=== PATIENT | male | born 1960 | race American Indian/Alaskan Native ===

== ENCOUNTER 2017-11-18 19:40 | Emergency (ER) | payer MEDICARE, OTHER ==
[~2017-11-18 19:40] MED LIST: Sodium Chloride 0.9% 1,000 ML IV ONE
--- NOTE | 2017-11-18 20:13 | EDM.PDOC ---
ED HPI GENERAL MEDICAL PROBLEM - General Chief Complaint: Diabetic Complaint Stated Complaint: IN BY AMBULANCE Time Seen by Provider: 11/18/17 19:45 Source of Information: Reports: Patient, EMS, RN Notes Reviewed History Limitations: Reports: No Limitations - History of Present Illness INITIAL COMMENTS - FREE TEXT/NARRATIVE: ED via [facility] with c/o feeling light headed, has noticed not feeling well for past week. Admits running out of medications 2 weeks ago. Hx htn, Diabetic on Metformin. and Seroquel for sleep . Denies ETOH. use only rare. Smoker one pack per day. Notes hx past month blood in urine for few days then passed stone. Stools have been dark. No vomiting. Has been living in [place] for past few years, now [place] spent in [facility] [place]. Notes feeling light headed when getting up at night to void, - Related Data Allergies Allergy/AdvReac Type Severity Reaction Status Date / Time No Known Allergies Allergy Verified 11/18/17 19:49 Home Meds: Home Meds Lisinopril [Prinivil] 1 tab PO DAILY 11/18/17 [History] QUEtiapine Fumarate [Seroquel] 600 mg PO BEDTIME 11/18/17 [History] metFORMIN HCl [Metformin HCl] 1 tab PO BID 11/18/17 [History] ED ROS GENERAL - Review of Systems Review Of Systems: See Below Constitutional: Reports: Malaise HEENT: Reports: No Symptoms Respiratory: Reports: No Symptoms Cardiovascular: Reports: Blood Pressure Problem, Lightheadedness Endocrine: Reports: High Glucose GI/Abdominal: Reports: Black Stool, Decreased Appetite : Reports: Hematuria (resolved) Musculoskeletal: Reports: No Symptoms Skin: Reports: No Symptoms ED EXAM GENERAL NO PERIP PULSE - Physical Exam Exam: See Below Exam Limited By: No Limitations General Appearance: Alert, No Apparent Distress Eye Exam: Bilateral Eye: EOMI Ears: Normal External Exam Nose: Normal Inspection, Normal Mucosa Throat/Mouth: Normal Inspection. No: Normal Teeth (multiple absent) Head: Atraumatic, Normocephalic Neck: Normal Inspection Respiratory/Chest: No Respiratory Distress, Lungs Clear, Normal Breath Sounds Cardiovascular: Normal Peripheral Pulses, Regular Rate, Rhythm, Tachycardia GI/Abdominal: Normal Bowel Sounds, Soft, Non-Tender Rectal (Males) Exam: Normal Rectal Tone, Heme + Stool Back Exam: Normal Inspection Extremities: Normal Inspection, Pallor Neurological: Alert, Oriented, Normal Cognition Psychiatric: Normal Affect Skin Exam: Warm, Dry, Intact, Pallor Course - Vital Signs Last Recorded V/S: Last Vital Signs Temp 98.3 F 11/18/17 21:57 Pulse 90 11/18/17 21:57 Resp 13 11/18/17 21:57 BP 123/58 L 11/18/17 21:57 Pulse Ox 100 11/18/17 19:41 - Orders/Labs/Meds Orders: Active Orders 24 hr Category Date Time Status EKG 12 Lead [EKG Documentation Completion] [] URGENT Care 11/18/17 20:18 Active Glucose [Blood Glucose Check, Bedside] [] ONETIME Care 11/18/17 19:35 Active ABG [BLOOD GAS ARTERIAL] [BG] Stat Lab 11/18/17 19:38 Received RED BLOOD CELLS LP [BBK] Stat Lab 11/18/17 19:40 Results TYPE AND SCREEN [BBK] Stat Lab 11/18/17 19:40 Results UA W/MICROSCOPIC [URIN] Stat Lab 11/18/17 21:19 Ordered Labs: Laboratory Tests 11/18/17 11/18/17 11/18/17 Range/Units 19:36 19:40 19:40 WBC 14.5 H (5.0-10.0) 10^3/uL RBC 1.47 L (4.6-6.2) 10^6/uL Hgb 4.5 L* (14.0-18.0) g/dL Hct 14.1 L* (40.0-54.0) % MCV 95.9 (80-100) fL MCH 30.6 (27.0-34.0) pg MCHC 31.9 L (33.0-35.0) g/dL Plt Count 528 H (150-450) 10^3/uL Neut % (Auto) 75.7 H (42.2-75.2) % Lymph % (Auto) 14.6 L (20.5-50.1) % [place] % (Auto) 8.0 (2-8) % Eos % (Auto) 0.9 L (1.0-3.0) % Baso % (Auto) 0.8 (0.0-1.0) % Add Manual Diff Yes Neutrophils % (Manual) 76 H (42-75) % Band Neutrophils % 9 % Lymphocytes % (Manual) 12 L (20-50) % Atypical Lymphs % 0 % Monocytes % (Manual) 2 (2-8) % Eosinophils % (Manual) 1 (1-3) % Basophils % (Manual) 0 Platelet Estimate Increased Hypochromasia 2+ moderate Poikilocytosis 1+ slight Anisocytosis 1+ slight Sodium 131 L (135-145) mmol/L Potassium 3.2 L (3.6-5.0) mmol/L Chloride 102 (101-111) mmol/L Carbon Dioxide 14.0 L (21.0-31.0) mmol/L Anion Gap 18.2 BUN 17 (7-18) mg/dL Creatinine 1.1 (0.6-1.3) mg/dL Est Cr Clr Drug Dosing 74.66 mL/min Estimated GFR (MDRD) > 60 BUN/Creatinine Ratio 15.45 Glucose 564 H* (74-105) mg/dL POC Glucose 456 H* (70-105) mg/dl Lactic Acid (0.5-2.2) mmol/L Calcium 8.6 (8.4-10.2) mg/dl Total Bilirubin 0.6 (0.2-1.0) mg/dL AST 27 (10-42) IU/L ALT 9 L (10-60) IU/L Alkaline Phosphatase 53 (42-121) IU/L Total Protein 6.3 L (6.7-8.2) g/dl Albumin 3.4 (3.2-5.5) g/dl Globulin 2.9 Albumin/Globulin Ratio 1.17 Amylase 49 (28-100) U/L Lipase 64 H (22-51) U/L Urine Color (YELLOW) Urine Appearance (CLEAR) Urine pH (5.0-9.0) Ur Specific [place] (1.005-1.030) Urine Protein (NEGATIVE) Urine Glucose (UA) (NEGATIVE) Urine Ketones (NEGATIVE) Urine Occult Blood (NEGATIVE) Urine Nitrite (NEGATIVE) Urine Bilirubin (NEGATIVE) Urine Urobilinogen (0.2-1.0) mg/dL Ur Leukocyte Esterase (NEGATIVE) Urine RBC /HPF Urine WBC (0-5/HPF) /HPF Ur Epithelial Cells /HPF Urine Bacteria (0-FEW/HPF) /HPF Blood Type Gel Antibody Screen Crossmatch 11/18/17 11/18/17 11/18/17 Range/Units 19:40 19:40 21:19 WBC (5.0-10.0) 10^3/uL RBC (4.6-6.2) 10^6/uL Hgb (14.0-18.0) g/dL Hct (40.0-54.0) % MCV (80-100) fL MCH (27.0-34.0) pg MCHC (33.0-35.0) g/dL Plt Count (150-450) 10^3/uL Neut % (Auto) (42.2-75.2) % Lymph % (Auto) (20.5-50.1) % [place] % (Auto) (2-8) % Eos % (Auto) (1.0-3.0) % Baso % (Auto) (0.0-1.0) % Add Manual Diff Neutrophils % (Manual) (42-75) % Band Neutrophils % % Lymphocytes % (Manual) (20-50) % Atypical Lymphs % % Monocytes % (Manual) (2-8) % Eosinophils % (Manual) (1-3) % Basophils % (Manual) Platelet Estimate Hypochromasia Poikilocytosis Anisocytosis Sodium (135-145) mmol/L Potassium (3.6-5.0) mmol/L Chloride (101-111) mmol/L Carbon Dioxide (21.0-31.0) mmol/L Anion Gap BUN (7-18) mg/dL Creatinine (0.6-1.3) mg/dL Est Cr Clr Drug Dosing mL/min Estimated GFR (MDRD) BUN/Creatinine Ratio Glucose (74-105) mg/dL POC Glucose (70-105) mg/dl Lactic Acid 4.7 H (0.5-2.2) mmol/L Calcium (8.4-10.2) mg/dl Total Bilirubin (0.2-1.0) mg/dL AST (10-42) IU/L ALT (10-60) IU/L Alkaline Phosphatase (42-121) IU/L Total Protein (6.7-8.2) g/dl Albumin (3.2-5.5) g/dl Globulin Albumin/Globulin Ratio Amylase (28-100) U/L Lipase (22-51) U/L Urine Color Yellow (YELLOW) Urine Appearance Slightly cloudy (CLEAR) Urine pH 7.0 (5.0-9.0) Ur Specific [place] 1.010 (1.005-1.030) Urine Protein Negative (NEGATIVE) Urine Glucose (UA) >=1000 H (NEGATIVE) Urine Ketones Trace H (NEGATIVE) Urine Occult Blood Negative (NEGATIVE) Urine Nitrite Negative (NEGATIVE) Urine Bilirubin Negative (NEGATIVE) Urine Urobilinogen 0.2 (0.2-1.0) mg/dL Ur Leukocyte Esterase Negative (NEGATIVE) Urine RBC Not seen /HPF Urine WBC 0-5 (0-5/HPF) /HPF Ur Epithelial Cells Few /HPF Urine Bacteria Few (0-FEW/HPF) /HPF Blood Type O POSITIVE Gel Antibody Screen Negative Crossmatch See Detail 11/18/17 Range/Units 21:25 WBC (5.0-10.0) 10^3/uL RBC (4.6-6.2) 10^6/uL Hgb (14.0-18.0) g/dL Hct (40.0-54.0) % MCV (80-100) fL MCH (27.0-34.0) pg MCHC (33.0-35.0) g/dL Plt Count (150-450) 10^3/uL Neut % (Auto) (42.2-75.2) % Lymph % (Auto) (20.5-50.1) % [place] % (Auto) (2-8) % Eos % (Auto) (1.0-3.0) % Baso % (Auto) (0.0-1.0) % Add Manual Diff Neutrophils % (Manual) (42-75) % Band Neutrophils % % Lymphocytes % (Manual) (20-50) % Atypical Lymphs % % Monocytes % (Manual) (2-8) % Eosinophils % (Manual) (1-3) % Basophils % (Manual) Platelet Estimate Hypochromasia Poikilocytosis Anisocytosis Sodium (135-145) mmol/L Potassium (3.6-5.0) mmol/L Chloride (101-111) mmol/L Carbon Dioxide (21.0-31.0) mmol/L Anion Gap BUN (7-18) mg/dL Creatinine (0.6-1.3) mg/dL Est Cr Clr Drug Dosing mL/min Estimated GFR (MDRD) BUN/Creatinine Ratio Glucose (74-105) mg/dL POC Glucose 403 H* (70-105) mg/dl Lactic Acid (0.5-2.2) mmol/L Calcium (8.4-10.2) mg/dl Total Bilirubin (0.2-1.0) mg/dL AST (10-42) IU/L ALT (10-60) IU/L Alkaline Phosphatase (42-121) IU/L Total Protein (6.7-8.2) g/dl Albumin (3.2-5.5) g/dl Globulin Albumin/Globulin Ratio Amylase (28-100) U/L Lipase (22-51) U/L Urine Color (YELLOW) Urine Appearance (CLEAR) Urine pH (5.0-9.0) Ur Specific [place] (1.005-1.030) Urine Protein (NEGATIVE) Urine Glucose (UA) (NEGATIVE) Urine Ketones (NEGATIVE) Urine Occult Blood (NEGATIVE) Urine Nitrite (NEGATIVE) Urine Bilirubin (NEGATIVE) Urine Urobilinogen (0.2-1.0) mg/dL Ur Leukocyte Esterase (NEGATIVE) Urine RBC /HPF Urine WBC (0-5/HPF) /HPF Ur Epithelial Cells /HPF Urine Bacteria (0-FEW/HPF) /HPF Blood Type Gel Antibody Screen Crossmatch Meds: Medications Discontinued Medications Generic Name Dose Route Start Last Admin Trade Name Freq PRN Reason Stop Dose Admin Sodium Chloride 1,000 mls @ 999 mls/hr 11/18/17 19:35 11/18/17 19:59 Normal Saline IV 11/18/17 20:35 999 mls/hr .BOLUS ONE Administration Insulin Human Regular 5 unit 11/18/17 20:17 11/18/17 20:25 Humulin R IV 11/18/17 20:18 5 units ONETIME ONE Administration Protocol Pantoprazole Sodium 80 mg 11/18/17 20:59 11/18/17 21:06 Protonix Iv IVPUSH 11/18/17 21:00 80 mg .BOLUS ONE Administration - Re-Assessments/Exams Free Text/Narrative Re-Assessment/Exam: 11/18/17 21:18 Vitals remain stable, c/o mild mid epigastric discomfort, no nausea or vomiting. TC Dr. Curtis, Ariel, accepting of patient for further evaluation and management of anemia with hemoccult positve stools. Tx via [facility], PRBC infusing Departure - Departure Time of Disposition: 22:00 Disposition: DC/Tfer to Acute Hospital 02 Condition: Undetermined Clinical Impression: Light-headed feeling, Hyperglycemia GI bleed Qualifiers: GI bleed type/associated pathology: melena Qualified Code(s): K92.1 - Melena - Discharge Information Referrals: PCP,None [Primary Care Provider] - Forms: ED Department Discharge - My Orders Last 24 Hours: My Active Orders 11/18/17 19:35 Glucose [Blood Glucose Check, Bedside] [RC] ONETIME 11/18/17 19:38 ABG [BLOOD GAS ARTERIAL] [BG] Stat 11/18/17 19:40 RED BLOOD CELLS LP [BBK] Stat TYPE AND SCREEN [BBK] Stat 11/18/17 20:18 EKG 12 Lead [EKG Documentation Completion] [RC] URGENT 11/18/17 21:19 UA W/MICROSCOPIC [URIN] Stat - Assessment/Plan Last 24 Hours: My Active Orders 11/18/17 19:35 Glucose [Blood Glucose Check, Bedside] [RC] ONETIME 11/18/17 19:38 ABG [BLOOD GAS ARTERIAL] [BG] Stat 11/18/17 19:40 RED BLOOD CELLS LP [BBK] Stat TYPE AND SCREEN [BBK] Stat 11/18/17 20:18 EKG 12 Lead [EKG Documentation Completion] [RC] URGENT 11/18/17 21:19 UA W/MICROSCOPIC [URIN] Stat
[2017-11-18] MEDS ORDERED: Insulin Regular, Human 100 Units/ML 3 ML Vial IV ONE (20:17)
[2017-11-18 20:25] LABS: ANION GAP 18.2; CHLORIDE,CL 102 mmol/L (101-111); SODIUM,NA 131 mmol/L (135-145)
[2017-11-18] MEDS ORDERED: Pantoprazole 40 MG Vial IVPUSH ONE (20:59)
--- NOTE | 2017-11-19 11:46 | EKG ---
11/18/2017 - AILIN BLAKE - FINDINGS: EKG shows normal sinus rhythm. Probable left atrial abnormality. Nonspecific T-wave abnormality. [facility] /[id number]
== END 2017-11-18 22:03 ==
LOC: DL.ED 19:40
DX: E11.65 Type 2 diabetes mellitus with hyperglycemia (principal); K92.1 Melena; I10 Essential (primary) hypertension; Z79.84 Long term (current) use of oral hypoglycemic drugs; Z79.899 Other long term (current) drug therapy
CPT/HCPCS: 36415; 36430; 80053; 81001; 82150; 82272; 82962; 83605; 83690; 85025; 86850; 86900; 86901; 86920; 86922; 93005; 93010; 96365; 96375; 99285; C9113; J1815; J7030; P9016; 82803

== ENCOUNTER 2018-01-25 10:09 | Emergency (ER) | payer BC ==
[2018-01-25] MEDS ORDERED: Midazolam 1 MG/ML 2 ML SDV IVPUSH ONE ×2 (10:12→10:39)
[2018-01-25] MEDS ORDERED: Sodium Chloride 0.9% 10 ML Syringe FLUSH PRN (10:15)
--- NOTE | 2018-01-25 10:17 | EDM.PDOC ---
ED HPI GENERAL MEDICAL PROBLEM - General Chief Complaint: Neurological Problem Stated Complaint: BY AMBULANCE Time Seen by Provider: 01/25/18 10:16 Source of Information: Reports: EMS, RN, RN Notes Reviewed History Limitations: Reports: Altered Mental Status - History of Present Illness INITIAL COMMENTS - FREE TEXT/NARRATIVE: Patient arrives to ER by [facility] as a "Nikita Richardson" with EMS report that pt was seen laying outside near [facility] since about 0730HRS this morning. Pt has no identification on him, and none was found on scene. It is believed that he has been staying in a camper near the area where he was found, but no one on scene knew him. EMS reports pt has been awake, alert, and warm, moving B/L arms and legs, turn head/moving neck and looking around, somewhat hyperactive and slightly agitated, follows some commands. Pt does not verbalize answers to question, and has not spoke other than to say, "no" a few times. Pt is unable to provide any history. Onset: Unknown/Unsure Location: Reports: Generalized Severity: Severe - Related Data Allergies Allergy/AdvReac Type Severity Reaction Status Date / Time No Known Allergies Allergy Verified 01/25/18 11:57 Past Medical History - History Comment History Comment: unable to obtain history: altered mental status, non-verbal Social & Family History - Family History Family Medical History: Unobtainable - Living Situation & Occupation Occupation: Other (unable to obtain any history: altered mental status, non- verbal) ED ROS GENERAL - Review of Systems Review Of Systems: Unable To Obtain (altered mental status, non-verbal) ED EXAM, NEURO - Physical Exam Exam: See Below Exam Limited By: Altered Mental Status General Appearance: Alert, No Apparent Distress, Thin, Other (Poor hygiene) Eye Exam: Bilateral Eye: EOMI, Normal Inspection, PERRL Ears: Normal External Exam Nose: Normal Inspection, Normal Mucosa, No Blood Throat/Mouth: Normal Lips, No Airway Compromise, Other (very dry oral membranes) Head Exam: Atraumatic, Normocephalic Neck: Normal Inspection, Supple, Non-Tender, Full Range of Motion Respiratory/Chest: No Respiratory Distress, Lungs Clear, Normal Breath Sounds, No Accessory Muscle Use, Chest Non-Tender Cardiovascular: Regular Rate, Rhythm, No Edema, Tachycardia GI/Abdominal: Normal Bowel Sounds, Soft, Non-Tender, No Distention, Pelvis Stable (Male) Exam: Deferred Rectal (Males) Exam: Deferred Neurological: Alert, Other (Aphasia. Pt spontaneously and purposefully moves B/ L upper & lower extremities, follows some commands) Back Exam: Normal Inspection Extremities: Normal Inspection, Normal Range of Motion, Non-Tender, No Pedal Edema, Normal Capillary Refill Skin Exam: Warm, Dry, Intact, Normal Color, No Rash EKG INTERPRETATION EKG Date: 01/25/18 Time: 10:21 Rhythm: Other (Sinus tach) Rate (Beats/Min): 114 [place]: Normal P-Wave: Present (Rt atrial abnormality) QRS: Normal ST-T: Normal QT: Normal Comparison: NA - No Prior EKG Course - Vital Signs Last Recorded V/S: Last Vital Signs Temp 37.0 C 01/25/18 10:16 Pulse 106 H 01/25/18 11:29 Resp 20 01/25/18 11:49 BP 143/67 H 01/25/18 11:49 Pulse Ox 100 01/25/18 11:49 - Orders/Labs/Meds Orders: Active Orders 24 hr Category Date Time Status Blood Glucose Check, Bedside [RC] ONETIME Care 01/25/18 10:15 Active EKG 12 Lead [EKG Documentation Completion] [RC] STAT Care 01/25/18 10:14 Active Peripheral IV Care [RC] . DIRECTED Care 01/25/18 10:15 Active DRUG SCREEN URINE BIORAD [URCHEM] Stat Lab 01/25/18 11:20 Ordered MVI, Adult with Vitamin K [Infuvite Adult] 10 ml Med 01/25/18 11:36 Active Thiamine [Vitamin B-1] 100 mg Folic Acid 1 mg Lactated Ringers [Ringers, Lactated] 1,000 ml IV .BOLUS Sodium Chloride 0.9% [Saline Flush] Med 01/25/18 10:15 Active 10 ml FLUSH ASDIRECTED PRN Peripheral IV Insertion Adult [OM.PC] Stat Oth 01/25/18 10:14 Ordered Medication Orders Multivitamins/Minerals 10 ml/Thiamine HCl 100 mg/ Folic Acid 1 mg/ Lactated Ringer's 1,011.2 mls @ 999 mls/hr IV .BOLUS ONE Stop: 01/25/18 12:36 Last Admin: 01/25/18 12:00 Dose: 999 mls/hr Sodium Chloride (Saline Flush) 10 ml FLUSH ASDIRECTED PRN PRN Reason: Keep Vein Open Labs: Laboratory Tests 01/25/18 01/25/18 01/25/18 Range/Units 10:29 10:29 10:29 WBC 17.0 H (5.0-10.0) 10^3/uL RBC 4.85 (4.6-6.2) 10^6/uL Hgb 13.6 L (14.0-18.0) g/dL Hct 39.8 L (40.0-54.0) % MCV 82.1 (80-100) fL MCH 28.0 (27.0-34.0) pg MCHC 34.2 (33.0-35.0) g/dL Plt Count 432 (150-450) 10^3/uL Neut % (Auto) 78.5 H (42.2-75.2) % Lymph % (Auto) 10.0 L (20.5-50.1) % Hale % (Auto) 11.1 H (2-8) % Eos % (Auto) 0.2 L (1.0-3.0) % Baso % (Auto) 0.2 (0.0-1.0) % Add Manual Diff Yes Neutrophils % (Manual) 77 H (42-75) % Band Neutrophils % 4 % Lymphocytes % (Manual) 10 L (20-50) % Monocytes % (Manual) 9 H (2-8) % Nucleated RBCs 1 /100WBC PT 10.0 (9.0-12.0) SEC INR 1.0 (0.9-1.2) APTT 26.9 (22.0-34.0) SEC Sodium 145 (135-145) mmol/L Potassium 3.9 (3.6-5.0) mmol/L Chloride 110 (101-111) mmol/L Carbon Dioxide 17.0 L (21.0-31.0) mmol/L Anion Gap 21.9 BUN 37 H (7-18) mg/dL Creatinine 1.0 (0.6-1.3) mg/dL Est Cr Clr Drug Dosing TNP Estimated GFR (MDRD) > 60 BUN/Creatinine Ratio 37.00 Glucose 326 H (74-105) mg/dL Lactic Acid (0.5-2.2) mmol/L Calcium 10.1 (8.4-10.2) mg/dl Total Bilirubin 0.8 (0.2-1.0) mg/dL AST 42 (10-42) IU/L ALT 13 (10-60) IU/L Alkaline Phosphatase 76 (42-121) IU/L Ammonia (11-35) umol/L Creatine Kinase (26-174) IU/L Creatine Kinase Index (0-2.4) % CK-MB (CK-2) (0.4-4.7) ng/mL Troponin I 0.03 H* (0.00-0.02) ng/ml Total Protein 8.4 H (6.7-8.2) g/dl Albumin 4.7 (3.2-5.5) g/dl Globulin 3.7 Albumin/Globulin Ratio 1.27 Urine Color (YELLOW) Urine Appearance (CLEAR) Urine pH (5.0-9.0) Ur Specific [place] (1.005-1.030) Urine Protein (NEGATIVE) Urine Glucose (UA) (NEGATIVE) Urine Ketones (NEGATIVE) Urine Occult Blood (NEGATIVE) Urine Nitrite (NEGATIVE) Urine Bilirubin (NEGATIVE) Urine Urobilinogen (0.2-1.0) mg/dL Ur Leukocyte Esterase (NEGATIVE) Urine RBC /HPF Urine WBC (0-5/HPF) /HPF Ur Epithelial Cells /HPF Urine Bacteria (0-FEW/HPF) /HPF Urine Opiates Screen (NEGATIVE) Ur Oxycodone Screen (NEGATIVE) Urine Methadone Screen (NEGATIVE) Ur Barbiturates Screen (NEGATIVE) U Tricyclic Antidepress (NEGATIVE) Ur Phencyclidine Scrn (NEGATIVE) Ur Amphetamine Screen (NEGATIVE) U Methamphetamines Scrn (NEGATIVE) Urine MDMA Screen (NEGATIVE) U Benzodiazepines Scrn (NEGATIVE) Urine Cocaine Screen (NEGATIVE) U Marijuana (THC) Screen (NEGATIVE) Ethyl Alcohol < 5 mg/dL 01/25/18 01/25/18 01/25/18 Range/Units 10:29 10:29 10:29 WBC (5.0-10.0) 10^3/uL RBC (4.6-6.2) 10^6/uL Hgb (14.0-18.0) g/dL Hct (40.0-54.0) % MCV (80-100) fL MCH (27.0-34.0) pg MCHC (33.0-35.0) g/dL Plt Count (150-450) 10^3/uL Neut % (Auto) (42.2-75.2) % Lymph % (Auto) (20.5-50.1) % Hale % (Auto) (2-8) % Eos % (Auto) (1.0-3.0) % Baso % (Auto) (0.0-1.0) % Add Manual Diff Neutrophils % (Manual) (42-75) % Band Neutrophils % % Lymphocytes % (Manual) (20-50) % Monocytes % (Manual) (2-8) % Nucleated RBCs /100WBC PT (9.0-12.0) SEC INR (0.9-1.2) APTT (22.0-34.0) SEC Sodium (135-145) mmol/L Potassium (3.6-5.0) mmol/L Chloride (101-111) mmol/L Carbon Dioxide (21.0-31.0) mmol/L Anion Gap BUN (7-18) mg/dL Creatinine (0.6-1.3) mg/dL Est Cr Clr Drug Dosing Estimated GFR (MDRD) BUN/Creatinine Ratio Glucose (74-105) mg/dL Lactic Acid 2.4 H (0.5-2.2) mmol/L Calcium (8.4-10.2) mg/dl Total Bilirubin (0.2-1.0) mg/dL AST (10-42) IU/L ALT (10-60) IU/L Alkaline Phosphatase (42-121) IU/L Ammonia 15 (11-35) umol/L Creatine Kinase 1402 H (26-174) IU/L Creatine Kinase Index 0.6 (0-2.4) % CK-MB (CK-2) 8.00 H (0.4-4.7) ng/mL Troponin I (0.00-0.02) ng/ml Total Protein (6.7-8.2) g/dl Albumin (3.2-5.5) g/dl Globulin Albumin/Globulin Ratio Urine Color (YELLOW) Urine Appearance (CLEAR) Urine pH (5.0-9.0) Ur Specific [place] (1.005-1.030) Urine Protein (NEGATIVE) Urine Glucose (UA) (NEGATIVE) Urine Ketones (NEGATIVE) Urine Occult Blood (NEGATIVE) Urine Nitrite (NEGATIVE) Urine Bilirubin (NEGATIVE) Urine Urobilinogen (0.2-1.0) mg/dL Ur Leukocyte Esterase (NEGATIVE) Urine RBC /HPF Urine WBC (0-5/HPF) /HPF Ur Epithelial Cells /HPF Urine Bacteria (0-FEW/HPF) /HPF Urine Opiates Screen (NEGATIVE) Ur Oxycodone Screen (NEGATIVE) Urine Methadone Screen (NEGATIVE) Ur Barbiturates Screen (NEGATIVE) U Tricyclic Antidepress (NEGATIVE) Ur Phencyclidine Scrn (NEGATIVE) Ur Amphetamine Screen (NEGATIVE) U Methamphetamines Scrn (NEGATIVE) Urine MDMA Screen (NEGATIVE) U Benzodiazepines Scrn (NEGATIVE) Urine Cocaine Screen (NEGATIVE) U Marijuana (THC) Screen (NEGATIVE) Ethyl Alcohol mg/dL 01/25/18 01/25/18 Range/Units 11:20 11:20 WBC (5.0-10.0) 10^3/uL RBC (4.6-6.2) 10^6/uL Hgb (14.0-18.0) g/dL Hct (40.0-54.0) % MCV (80-100) fL MCH (27.0-34.0) pg MCHC (33.0-35.0) g/dL Plt Count (150-450) 10^3/uL Neut % (Auto) (42.2-75.2) % Lymph % (Auto) (20.5-50.1) % Hale % (Auto) (2-8) % Eos % (Auto) (1.0-3.0) % Baso % (Auto) (0.0-1.0) % Add Manual Diff Neutrophils % (Manual) (42-75) % Band Neutrophils % % Lymphocytes % (Manual) (20-50) % Monocytes % (Manual) (2-8) % Nucleated RBCs /100WBC PT (9.0-12.0) SEC INR (0.9-1.2) APTT (22.0-34.0) SEC Sodium (135-145) mmol/L Potassium (3.6-5.0) mmol/L Chloride (101-111) mmol/L Carbon Dioxide (21.0-31.0) mmol/L Anion Gap BUN (7-18) mg/dL Creatinine (0.6-1.3) mg/dL Est Cr Clr Drug Dosing Estimated GFR (MDRD) BUN/Creatinine Ratio Glucose (74-105) mg/dL Lactic Acid (0.5-2.2) mmol/L Calcium (8.4-10.2) mg/dl Total Bilirubin (0.2-1.0) mg/dL AST (10-42) IU/L ALT (10-60) IU/L Alkaline Phosphatase (42-121) IU/L Ammonia (11-35) umol/L Creatine Kinase (26-174) IU/L Creatine Kinase Index (0-2.4) % CK-MB (CK-2) (0.4-4.7) ng/mL Troponin I (0.00-0.02) ng/ml Total Protein (6.7-8.2) g/dl Albumin (3.2-5.5) g/dl Globulin Albumin/Globulin Ratio Urine Color Yellow (YELLOW) Urine Appearance Clear (CLEAR) Urine pH 7.0 (5.0-9.0) Ur Specific [place] 1.025 (1.005-1.030) Urine Protein 100 H (NEGATIVE) Urine Glucose (UA) 250 H (NEGATIVE) Urine Ketones 80 H (NEGATIVE) Urine Occult Blood Small H (NEGATIVE) Urine Nitrite Negative (NEGATIVE) Urine Bilirubin Moderate H (NEGATIVE) Urine Urobilinogen 0.2 (0.2-1.0) mg/dL Ur Leukocyte Esterase Negative (NEGATIVE) Urine RBC 0-5 /HPF Urine WBC 0-5 (0-5/HPF) /HPF Ur Epithelial Cells Rare /HPF Urine Bacteria Not seen (0-FEW/HPF) /HPF Urine Opiates Screen Negative (NEGATIVE) Ur Oxycodone Screen Negative (NEGATIVE) Urine Methadone Screen Negative (NEGATIVE) Ur Barbiturates Screen Negative (NEGATIVE) U Tricyclic Antidepress Negative (NEGATIVE) Ur Phencyclidine Scrn Negative (NEGATIVE) Ur Amphetamine Screen Negative (NEGATIVE) U Methamphetamines Scrn Negative (NEGATIVE) Urine MDMA Screen Negative (NEGATIVE) U Benzodiazepines Scrn Negative (NEGATIVE) Urine Cocaine Screen Negative (NEGATIVE) U Marijuana (THC) Screen Negative (NEGATIVE) Ethyl Alcohol mg/dL Meds: Medications Generic Name Dose Route Start Last Admin Trade Name Freq PRN Reason Stop Dose Admin Multivitamins/Minerals 10 ml/ 1,011.2 mls @ 999 mls/hr 01/25/18 11:36 12:00 Thiamine HCl 100 mg/ Folic IV 01/25/18 12:36 999 mls/hr Acid 1 mg/ Lactated Ringer's .BOLUS ONE Administration Sodium Chloride 10 ml 01/25/18 10:15 Saline Flush FLUSH ASDIRECTED PRN Keep Vein Open Discontinued Medications Generic Name Dose Route Start Last Admin Trade Name Sarah Beth PRN Reason Stop Dose Admin Lorazepam 2 mg 01/25/18 11:49 01/25/18 11:55 Ativan IVPUSH 01/25/18 11:50 2 mg ONETIME ONE Administration Midazolam HCl 2 mg 01/25/18 10:12 01/25/18 10:24 Versed 1 Mg/Ml IVPUSH 01/25/18 10:13 2 mg ONETIME ONE Administration Midazolam HCl 2 mg 01/25/18 10:39 01/25/18 10:50 Versed 1 Mg/Ml IVPUSH 01/25/18 10:40 2 mg ONETIME ONE Administration - Radiology Interpretation Free Text/Narrative:: [facility] Final Radiology Report Call: [phone] assistance Online chat: [email or web address] Name: AILIN BLAKE Age: 57Years M Date: 01/25/2018 SSN: -- : [id number] Study: CT HEAD WO Requesting Physician: MC COULTER Images: 146 Addl Studies: Provided Clinical History: ALTERED MENTAL STATUS WITH APHASIA, MALE FOUND OUTSIDE ON GROUND, UNKNOWN HISTORY, POSSIBLE STROKE Contrast: Without Contrast Medium: Contrast Amount: Contrast Method: Page 1 of 2 EXAM: CT Head Without Intravenous Contrast EXAM DATE/TIME: 01/25/2018 10:44 AM CLINICAL HISTORY: 57 years old, male; Signs and symptoms; Altered mental status/memory loss; Confusion or disorientation; Additional info: Altered mental status with aphasia, male found outside on ground, unknown history, possible stroke TECHNIQUE: Axial computed tomography images of the head/brain without intravenous contrast. All CT scans at this facility use at least one of these dose optimization techniques: automated exposure control; mA and/or kV adjustment per patient size (includes targeted exams where dose is matched to clinical indication); or iterative reconstruction. Coronal and sagittal reformatted images were created and reviewed. COMPARISON: No relevant prior studies available. FINDINGS: Brain: Prominent sulci. Patchy hypodensity of the cerebral white matter which are nonspecific but likely secondary to microangiopathic changes. No hemorrhage. Ventricles: The ventricles are prominent secondary to diffuse volume loss/ atrophy. Bones/joints: Unremarkable. No acute fracture. Soft tissues: Unremarkable. Sinuses: Unremarkable as visualized. No acute sinusitis. Mastoid air cells: Unremarkable as visualized. No mastoid effusion. AILIN BLAKE | Final Radiology Report CONFIDENTIALITY STATEMENT This report is intended only for use by the referring physician, and only in accordance with law. If you received this in error, call [phone]. Page 2 of 2 IMPRESSION: Chronic age related changes but no evidence of acute intracranial pathology. Thank you for allowing us to participate in the care of your patient. Dictated and Authenticated by: Perla Patel MD 01/25/2018 11:21 AM Central Time ([place] & [place]) CT Results Date: 01/25/18 CT Results Time: 11:30 - Re-Assessments/Exams Free Text/Narrative Re-Assessment/Exam: 01/25/18 12:09 The [facility]'s deputy was able to confirm the pt's identification by producing a wallet with pedicab driver's license that contained a recent photo. Pt's brother Steven Blake was contacted via phone. The brother lives in [place], but is the power of civil litigation attorney for the pt. The brother reports the pt is diabetic, has thyroid disease, and high cholesterol, bipolor disorder, and EtOH/Substance abuse. 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 dependence with withdrawal with perceptual disturbance Rhabdomyolysis Qualifiers: Rhabdomyolysis type: non-traumatic Qualified Code(s): M62.82 - Rhabdomyolysis Altered mental status Qualifiers: Altered mental status type: unspecified Qualified Code(s): R41.82 - Altered mental status, unspecified - Discharge Information Forms: ED Department Discharge, Interfacility Transfer EMTALA - My Orders Last 24 Hours: My Active Orders 01/25/18 10:14 EKG 12 Lead [EKG Documentation Completion] [RC] STAT Peripheral IV Insertion Adult [OM.PC] Stat 01/25/18 10:15 Blood Glucose Check, Bedside [RC] ONETIME Peripheral IV Care [RC] . DIRECTED Sodium Chloride 0.9% [Saline Flush] 10 ml FLUSH ASDIRECTED PRN 01/25/18 11:20 DRUG SCREEN URINE BIORAD [URCHEM] Stat 01/25/18 11:36 MVI, Adult with Vitamin K [Infuvite Adult] 10 ml Thiamine [Vitamin B-1] 100 mg Folic Acid 1 mg Lactated Ringers [Ringers, Lactated] 1,000 ml IV .BOLUS - Assessment/Plan Last 24 Hours: My Active Orders 01/25/18 10:14 EKG 12 Lead [EKG Documentation Completion] [RC] STAT Peripheral IV Insertion Adult [OM.PC] Stat 01/25/18 10:15 Blood Glucose Check, Bedside [RC] ONETIME Peripheral IV Care [RC] . DIRECTED Sodium Chloride 0.9% [Saline Flush] 10 ml FLUSH ASDIRECTED PRN 01/25/18 11:20 DRUG SCREEN URINE BIORAD [URCHEM] Stat 01/25/18 11:36 MVI, Adult with Vitamin K [Infuvite Adult] 10 ml Thiamine [Vitamin B-1] 100 mg Folic Acid 1 mg Lactated Ringers [Ringers, Lactated] 1,000 ml IV .BOLUS
[2018-01-25 10:58] LABS: ANION GAP 21.9; CHLORIDE,CL 110 mmol/L (101-111); SODIUM,NA 145 mmol/L (135-145)
[2018-01-25] MEDS ORDERED: MVI, Adult with Vitamin K 10 ML, Thiamine 100 MG, Folic Acid 1 MG in Lactated Ringers 1... IV ONE ×4 (11:36)
[2018-01-25] MEDS ORDERED: LORazepam 2 MG/ML Syringe IVPUSH ONE ×2 (11:49→12:36)
== END 2018-01-25 12:48 ==
LOC: EDSEX → EDBD → DL.ED 10:09 → MERGE 10:09 → DL.ED 12:48
DX: R41.82 Altered mental status, unspecified (principal); M62.82 Rhabdomyolysis; F10.232 Alcohol dependence with withdrawal with perceptual disturbance
CPT/HCPCS: 36415; 51702; 70450; 80053; 80305; 81001; 82140; 82550; 82553; 83605; 84484; 85025; 85610; 85730; 93005; 96365; 96375; 96376; 99285; G0480; J2060; J2250; J3411; J7050; J7120; 93010; J3490

== ENCOUNTER 2018-02-13 13:25 | Emergency (ER) | payer BC ==
[2018-02-13 14:08] LABS: ANION GAP 13.9; CHLORIDE,CL 100 mmol/L (101-111); SODIUM,NA 133 mmol/L (135-145)
[2018-02-13 14:09] LABS: ACETAMINOPHEN < 10
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
== END 2018-02-13 15:58 | disposition home or self-care (01) ==
LOC: DL.ED 13:25
DX: F31.9 Bipolar disorder, unspecified (principal); E11.9 Type 2 diabetes mellitus without complications; I10 Essential (primary) hypertension; Z79.82 Long term (current) use of aspirin; Z79.899 Other long term (current) drug therapy
CPT/HCPCS: 36415; 80053; 80305; 81001; 84484; 85025; 93005; 99284; G0480

== ENCOUNTER 2019-08-14 12:10 | Emergency (ER) | payer MEDICARE ==
[2019-08-14] MEDS ORDERED: Sodium Chloride 0.9% 10 ML Syringe FLUSH PRN (12:46)
[2019-08-14] MEDS ORDERED: Sodium Chloride 0.9% 1,000 ML IV ONE (13:39)
[2019-08-14 13:46] LABS: ANION GAP 18.5 mEq/L (7-13); CHLORIDE,CL 96 mmol/L (98-107); SODIUM,NA 131 mmol/L (136-145)
[2019-08-14] MEDS ORDERED: Insulin Regular, Human 100 Units/ML 3 ML Vial SUBCUT ONE (13:55)
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
== END 2019-08-14 14:58 | disposition home or self-care (01) ==
LOC: DL.ED 12:10
DX: E11.65 Type 2 diabetes mellitus with hyperglycemia (principal); R42 Dizziness and giddiness; F31.9 Bipolar disorder, unspecified; I10 Essential (primary) hypertension; F41.9 Anxiety disorder, unspecified; F17.210 Nicotine dependence, cigarettes, uncomplicated; Z79.82 Long term (current) use of aspirin; Z79.84 Long term (current) use of oral hypoglycemic drugs; Z79.899 Other long term (current) drug therapy
CPT/HCPCS: 36415; 80053; 80305; 80307; 81001; 82962; 83880; 84484; 85025; 93005; 96360; 99285; J1815; J7030

== ENCOUNTER 2019-08-19 21:35 | Emergency (ER) | payer MEDICARE, OTHER ==
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
[2019-08-19 22:03] LABS: ACETAMINOPHEN 2 ug/mL (10-30 (Therapeutic))
[2019-08-19 22:06] LABS: ANION GAP 14.3 mEq/L (7-13); CHLORIDE,CL 94 mmol/L (98-107); SODIUM,NA 132 mmol/L (136-145)
== END 2019-08-20 01:17 | disposition home or self-care (01) ==
LOC: DL.ED 21:35
DX: R41.82 Altered mental status, unspecified (principal); R42 Dizziness and giddiness; T40.4X5A Adverse effect of other synthetic narcotics, initial encounter; E11.9 Type 2 diabetes mellitus without complications; I10 Essential (primary) hypertension; Z79.82 Long term (current) use of aspirin; Z79.899 Other long term (current) drug therapy
CPT/HCPCS: 36415; 80053; 80305; 80307; 81003; 82009; 82140; 82962; 83605; 84484; 85025; 93005; 96360; 99283; 99284; J7030

== ENCOUNTER 2020-04-15 20:41 | Emergency (ER) | payer MEDICARE ==
[2020-04-15] MEDS ORDERED: Triamcinolone Acetonide 0.1% Crm 15 GM Tube TOP ONE (20:42)
[2020-04-15] MEDS ORDERED: Triamcinolone Acetonide 0.1% Crm 15 GM Tube ONE (21:05)
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
== END 2020-04-15 21:20 | disposition home or self-care (01) ==
LOC: DL.ED 20:41
DX: L29.9 Pruritus, unspecified (principal); I10 Essential (primary) hypertension; E11.9 Type 2 diabetes mellitus without complications; F41.9 Anxiety disorder, unspecified; F31.9 Bipolar disorder, unspecified; Z79.82 Long term (current) use of aspirin; Z79.899 Other long term (current) drug therapy; Z79.84 Long term (current) use of oral hypoglycemic drugs
CPT/HCPCS: 99282; A9270

== ENCOUNTER 2021-07-08 20:16 | Emergency (ER) | payer MEDICARE, SELFPAY ==
[2021-07-08] MEDS ORDERED: predniSONE 20 MG Tab PO ONE ×2 (20:17→20:42)
[2021-07-08] MEDS ORDERED: predniSONE 20 MG Tab ONE (20:52)
== END 2021-07-08 21:02 | disposition home or self-care (01) ==
LOC: DL.ED 20:16
DX: M25.511 Pain in right shoulder (principal); I10 Essential (primary) hypertension; K21.9 Gastro-esophageal reflux disease without esophagitis; E11.9 Type 2 diabetes mellitus without complications; Z79.899 Other long term (current) drug therapy; Z79.84 Long term (current) use of oral hypoglycemic drugs; Z72.0 Tobacco use
CPT/HCPCS: 99284; J7512

== ENCOUNTER 2021-07-25 17:40 | Inpatient (IN) | payer BC, MEDICAID, MEDICARE ==
[2021-07-25] MEDS ORDERED: Sodium Chloride 0.9% 1,000 ML IV ONE (18:15)
[2021-07-25 19:24] LABS: METHAMPHETAMINES,URINE NEGATIVE (NEGATIVE)
[2021-07-25 19:25] LABS: AMPHETAMINES,URINE NEGATIVE (NEGATIVE); BARBITURATES,URINE NEGATIVE (NEGATIVE); BENZODIAZEPINE,URINE NEGATIVE (NEGATIVE); MDMA (ECSTASY), URINE NEGATIVE (NEGATIVE); METHADONE,URINE NEGATIVE (NEGATIVE); OPIATES,URINE NEGATIVE (NEGATIVE); OXYCODONE,URINE NEGATIVE (NEGATIVE); PHENCYCLIDINE,URINE NEGATIVE (NEGATIVE); TCA,URINE NEGATIVE (NEGATIVE)
[2021-07-25 19:27] LABS: CORONAVIRUS COVID-19 NAA NEGATIVE (NEGATIVE)
[2021-07-25 19:30] LABS: ANION GAP 18.7 mEq/L (7-13); CHLORIDE,CL 113 mmol/L (98-107); ESTIMATED GFR > 60; SODIUM,NA 153 mmol/L (136-145)
[2021-07-25 19:31] LABS: ACETAMINOPHEN 0 ug/mL (10-30 (Therapeutic))
[2021-07-25] MEDS ORDERED: Sodium Chloride 0.9% 250 ML IV SCH (21:30)
[2021-07-25] MEDS ORDERED: 50% Dextrose in Water 50 ML Syringe IVPUSH PRN (21:31)
[2021-07-25] MEDS ORDERED: Acetaminophen 325 MG Tab PO PRN (21:32)
[2021-07-25] MEDS ORDERED: Ondansetron 4 MG/2 ML SDV IVPUSH PRN (21:32)
[2021-07-25] MEDS ORDERED: oxyCODONE 5 MG Tab PO PRN (21:32)
[2021-07-25] MEDS: Heparin Sodium 5,000 Units/ML Vial SUBCUT SCH (23:38)
[2021-07-26] MEDS: Heparin Sodium 5,000 Units/ML Vial SUBCUT SCH ×3 (06:00→21:01)
[2021-07-26 06:22] LABS: CHLORIDE,CL 117 mmol/L (98-107); ESTIMATED GFR > 60; SODIUM,NA 154 mmol/L (136-145)
[2021-07-26] MEDS ORDERED: Thiamine 100 MG Tab PO SCH (09:00)
[2021-07-26] MEDS ORDERED: NS + KCl 20mEq/L 1,000 ML IV SCH (09:30)
[2021-07-26] MEDS: Insulin Lispro 100 Units/ML 3 ML Vial SUBCUT SCH ×4 (11:39→21:39)
[2021-07-26] MEDS: Potassium Chloride 10 MEQ in Premix Bag 1 BAG IV SCH ×5 (12:21→23:07)
[2021-07-26] MEDS ORDERED: Sodium Chloride 0.45% with KCl 1,000 ML IV SCH (12:45)
[2021-07-26] MEDS ORDERED: Thiamine 200 MG/2 ML MDV IV SCH (12:45)
[2021-07-26] MEDS: Thiamine 200 MG/2 ML MDV IV SCH (15:15)
[2021-07-26 17:00] LABS: ANION GAP 14.6 mEq/L (7-13); CHLORIDE,CL 118 mmol/L (98-107); ESTIMATED GFR > 60; SODIUM,NA 154 mmol/L (136-145)
[2021-07-26] MEDS ORDERED: 50% Dextrose in Water 50 ML Syringe IVPUSH PRN (18:14)
[2021-07-26] MEDS ORDERED: Glucagon,Human Recombinant 1 MG Vial IM PRN (18:14)
[2021-07-26] MEDS ORDERED: Insulin Glarg,Human.Rec.Analog 100 Unit/ML SUBCUT SCH (21:00)
[2021-07-26] MEDS: Sodium Chloride 0.45% with KCl 1,000 ML IV SCH (22:10)
[2021-07-27] MEDS: Potassium Chloride 10 MEQ in Premix Bag 1 BAG IV SCH (01:17)
[2021-07-27] MEDS: Dextrose 5% in Water 1,000 ML IV SCH ×2 (05:11→19:16)
[2021-07-27] MEDS: Heparin Sodium 5,000 Units/ML Vial SUBCUT SCH ×3 (05:18→21:24)
[2021-07-27] MEDS ORDERED: Levothyroxine 100 MCG Tab PO SCH (06:00)
[2021-07-27] MEDS: Sodium Chloride 0.45% with KCl 1,000 ML IV SCH (06:16)
[2021-07-27 07:25] LABS: ANION GAP 14.7 mEq/L (7-13); CHLORIDE,CL 118 mmol/L (98-107); ESTIMATED GFR > 60; SODIUM,NA 153 mmol/L (136-145)
[2021-07-27] MEDS ORDERED: Ferrous Sulfate 325 MG Tab PO SCH (08:00)
[2021-07-27] MEDS ORDERED: Multivitamins with Iron/Calcium/Folic Acid/Minerals Tab PO SCH (09:00)
[2021-07-27] MEDS: Insulin Lispro 100 Units/ML 3 ML Vial SUBCUT SCH ×4 (09:14→21:27)
[2021-07-27] MEDS: Thiamine 200 MG/2 ML MDV IV SCH (09:16)
[2021-07-27] MEDS ORDERED: 50% Dextrose in Water 50 ML Syringe IVPUSH PRN (14:39)
[2021-07-27] MEDS ORDERED: Glucagon,Human Recombinant 1 MG Vial IM PRN (14:39)
[2021-07-27] MEDS ORDERED: Insulin Glarg,Human.Rec.Analog 100 Unit/ML SUBCUT SCH (15:00)
[2021-07-27 15:27] LABS: ANION GAP 13.8 mEq/L (7-13); CHLORIDE,CL 115 mmol/L (98-107); ESTIMATED GFR > 60; SODIUM,NA 149 mmol/L (136-145)
[2021-07-27 21:44] LABS: ANION GAP 11.7 mEq/L (7-13); CHLORIDE,CL 113 mmol/L (98-107); ESTIMATED GFR > 60; SODIUM,NA 148 mmol/L (136-145)
== END 2021-07-28 02:40 | DRG 640 ==
LOC: DL.ED 17:40 → DL.MS 20:38
PROVIDERS: ADMIT Internal Medicine; ATTEND Internal Medicine
DX: E87.0 Hyperosmolality and hypernatremia (principal); G93.41 Metabolic encephalopathy; F31.60 Bipolar disorder, current episode mixed, unspecified; R53.1 Weakness; E11.65 Type 2 diabetes mellitus with hyperglycemia; R41.82 Altered mental status, unspecified; F20.9 Schizophrenia, unspecified; F31.9 Bipolar disorder, unspecified; T43.591A Poisoning by other antipsychotics and neuroleptics, accidental (unintentional), initial encounter; E86.0 Dehydration; I10 Essential (primary) hypertension; E03.9 Hypothyroidism, unspecified; K21.9 Gastro-esophageal reflux disease without esophagitis; Z79.1 Long term (current) use of non-steroidal anti-inflammatories (NSAID); Z87.442 Personal history of urinary calculi; Z79.4 Long term (current) use of insulin; Z87.81 Personal history of (healed) traumatic fracture; F41.9 Anxiety disorder, unspecified; Z86.59 Personal history of other mental and behavioral disorders; Y92.89 Other specified places as the place of occurrence of the external cause; E11.9 Type 2 diabetes mellitus without complications; Z79.84 Long term (current) use of oral hypoglycemic drugs; Z79.899 Other long term (current) drug therapy; Z79.890 Hormone replacement therapy; Z20.822 Contact with and (suspected) exposure to COVID-19
CPT/HCPCS: 0240U; 36415; 51702; 70450; 71045; 72125; 80048; 80053; 80076; 80143; 80179; 80305; 80307; 81001; 82140; 82150; 82272; 82550; 82947; 83605; 83690; 83735; 83880; 84484; 85025; 85379; 85610; 87040; 93005; 93010; 99285; 99221; 99232; 99239; J1644; J1815-GY; J3411; J3480; J7030; J7050; J7060

== ENCOUNTER 2021-08-24 08:34 | Emergency (ER) | payer MEDICAID, MEDICARE ==
[2021-08-24 09:45] LABS: ANION GAP 9.6 mEq/L (7-13); CHLORIDE,CL 99 mmol/L (98-107); SODIUM,NA 139 mmol/L (136-145)
== END 2021-08-24 10:14 | disposition home or self-care (01) ==
LOC: DL.ED 08:34
DX: M75.102 Unspecified rotator cuff tear or rupture of left shoulder, not specified as traumatic (principal); I10 Essential (primary) hypertension; K21.9 Gastro-esophageal reflux disease without esophagitis; E11.9 Type 2 diabetes mellitus without complications; Z79.899 Other long term (current) drug therapy; Z79.4 Long term (current) use of insulin
CPT/HCPCS: 36415; 73030-LT; 80053; 84484; 85025; 86140; 93005; 99284-25

== ENCOUNTER 2022-05-15 19:06 | Emergency (ER) | payer BC, MEDICARE ==
[2022-05-15] MEDS ORDERED: Sodium Chloride 0.9% 1,000 ML IV ONE ×2 (19:44→21:00)
[2022-05-15 20:14] LABS: ANION GAP 22.7 mEq/L (7-13); CHLORIDE,CL 115 mmol/L (98-107); SODIUM,NA 157 mmol/L (136-145)
[2022-05-15 20:17] LABS: ESTIMATED GFR 39 mL/min (>=60)
[2022-05-15 20:24] LABS: O2 DELIVERY DEVICE ROOM AIR
[2022-05-15 20:25] LABS: ALLEN TEST PERFORMED
[2022-05-15 20:26] LABS: BASE EXCESS ARTERIAL -6 mmol/L ((-2)-(+3)); BICARBONATE,ARTERIAL 18.7 mmol/L (22-26); O2 SATURATION ARTERIAL 96 % (95-100); PCO2 ARTERIAL 31 mmHg (35-45); PO2 ARTERIAL 86 mmHg (70-100)
[2022-05-15 20:57] LABS: CORONAVIRUS COVID-19 NAA NEGATIVE (NEGATIVE)
[2022-05-15] MEDS ORDERED: cefTRIAXone 2 GM Vial IVPUSH ONE (21:01)
[2022-05-16] MEDS ORDERED: Sodium Chloride 0.9% 1,000 ML IV ONE (03:53)
[2022-05-16 04:18] LABS: ANION GAP 18.2 mEq/L (7-13); CHLORIDE,CL 124 mmol/L (98-107)
[2022-05-16 04:32] LABS: ESTIMATED GFR 47 mL/min (>=60); SODIUM,NA 164 mmol/L (136-145)
[2022-05-16] MEDS ORDERED: Insulin Regular, Human 100 Units/ML 3 ML Vial IV ONE (04:36)
[2022-05-16] MEDS ORDERED: 50% Dextrose in Water 50 ML Syringe IVPUSH PRN (04:36)
[2022-05-16] MEDS ORDERED: Glucagon,Human Recombinant 1 MG Vial IM PRN (04:36)
[2022-05-16] MEDS ORDERED: Sodium Chloride 0.45% 1,000 ML IV SCH (04:45)
[2022-05-16 07:58] LABS: ANION GAP 17.5 mEq/L (7-13); CHLORIDE,CL 125 mmol/L (98-107)
[2022-05-16 08:01] LABS: ESTIMATED GFR 49 mL/min (>=60); SODIUM,NA 165 mmol/L (136-145)
[2022-05-16] MEDS ORDERED: Dextrose 5% in Water 1,000 ML IV SCH (08:15)
== END 2022-05-16 10:13 ==
LOC: DL.ED 19:06
DX: R41.82 Altered mental status, unspecified (principal); N30.00 Acute cystitis without hematuria; N17.9 Acute kidney failure, unspecified; E87.1 Hypo-osmolality and hyponatremia; I10 Essential (primary) hypertension; E11.9 Type 2 diabetes mellitus without complications; Z20.822 Contact with and (suspected) exposure to COVID-19; Z79.4 Long term (current) use of insulin; Z79.899 Other long term (current) drug therapy
CPT/HCPCS: 0240U; 36415; 36600; 51702; 70450; 71046; 80048; 80053; 81001; 82009; 82550; 82803; 82947; 83605; 84443; 84484; 85025; 87040; 87086; 93005; 96361; 96374; 96375; 99285; J0696; J1815; J7030; J7060

== ENCOUNTER 2022-05-30 00:06 | Emergency (ER) | payer BC ==
[2022-05-30] MEDS: Orphenadrine 60 MG/2 ML Inj IM ONE (01:35)
[2022-05-30] MEDS: Ketorolac 30 MG/ML SDV IM ONE (01:51)
== END 2022-05-30 01:51 | disposition home or self-care (01) ==
LOC: DL.ED 00:06
DX: M25.511 Pain in right shoulder (principal); G89.29 Other chronic pain; E11.9 Type 2 diabetes mellitus without complications; K21.9 Gastro-esophageal reflux disease without esophagitis; I10 Essential (primary) hypertension; F17.210 Nicotine dependence, cigarettes, uncomplicated; Z79.899 Other long term (current) drug therapy; Z79.4 Long term (current) use of insulin
CPT/HCPCS: 96372; 99283; J2360

== ENCOUNTER 2022-06-06 15:26 | Emergency (ER) | payer BC, MEDICARE ==
[2022-06-06 20:13] LABS: ANION GAP 12.4 mEq/L (7-13); CHLORIDE,CL 105 mmol/L (98-107); SODIUM,NA 140 mmol/L (136-145)
[2022-06-06 20:17] LABS: ACETAMINOPHEN 0 ug/mL (10-30 (Therapeutic)); ESTIMATED GFR 92 mL/min (>=60)
[2022-06-06 20:50] LABS: RESPIRATORY SYNCYTIAL VIR NAA NEGATIVE (NEGATIVE)
[2022-06-06 20:55] LABS: CORONAVIRUS COVID-19 NAA POSITIVE (NEGATIVE)
== END 2022-06-06 21:31 | disposition home or self-care (01) ==
LOC: DL.ED 15:26
DX: U07.1 COVID-19 (principal); I10 Essential (primary) hypertension; K21.9 Gastro-esophageal reflux disease without esophagitis; E11.9 Type 2 diabetes mellitus without complications; Z79.4 Long term (current) use of insulin; Z79.899 Other long term (current) drug therapy; Z20.822 Contact with and (suspected) exposure to COVID-19; Z91.14 Patient's other noncompliance with medication regimen
CPT/HCPCS: 0241U; 36415; 70450; 80053; 80143; 80179; 80307; 82009; 82947; 83605; 83735; 85025; 87040; 99285

== ENCOUNTER 2022-06-10 19:44 | Emergency (ER) | payer BC, OTHER | END 2022-06-10 20:22 | disposition left against medical advice (07) | LOC: DL.ED 19:44 | DX: Z53.21 Procedure and treatment not carried out due to patient leaving prior to being seen by health care provider (principal) ==

== ENCOUNTER 2022-07-05 22:59 | Emergency (ER) | payer MEDICARE ==
[2022-07-05] MEDS ORDERED: Sodium Chloride 0.9% 10 ML Syringe FLUSH PRN (23:08)
[2022-07-05 23:51] LABS: ANION GAP 7.9 mEq/L (7-13); CHLORIDE,CL 96 mmol/L (98-107); SODIUM,NA 127 mmol/L (136-145)
[2022-07-05 23:53] LABS: PTT,PARTIAL THROMBOPLSTIN TIME 26.4 SEC (22.0-34.0)
[2022-07-05 23:58] LABS: ESTIMATED GFR 77 mL/min (>=60)
[2022-07-06] MEDS ORDERED: Sodium Chloride 0.9% 1,000 ML IV ONE (00:04)
[2022-07-06 01:39] LABS: AMPHETAMINES,URINE NEGATIVE (NEGATIVE); BARBITURATES,URINE NEGATIVE (NEGATIVE); BENZODIAZEPINE,URINE NEGATIVE (NEGATIVE); MDMA (ECSTASY), URINE NEGATIVE (NEGATIVE); METHADONE,URINE NEGATIVE (NEGATIVE); METHAMPHETAMINES,URINE NEGATIVE (NEGATIVE); OPIATES,URINE NEGATIVE (NEGATIVE); OXYCODONE,URINE NEGATIVE (NEGATIVE); PHENCYCLIDINE,URINE NEGATIVE (NEGATIVE); TCA,URINE POSITIVE (NEGATIVE)
== END 2022-07-06 02:15 | disposition other institution (70) ==
LOC: DL.ED 22:59
DX: E87.1 Hypo-osmolality and hyponatremia (principal); E83.42 Hypomagnesemia; E87.8 Other disorders of electrolyte and fluid balance, not elsewhere classified; I10 Essential (primary) hypertension; K21.9 Gastro-esophageal reflux disease without esophagitis; E11.9 Type 2 diabetes mellitus without complications; Z79.4 Long term (current) use of insulin; Z79.899 Other long term (current) drug therapy
CPT/HCPCS: 36415; 70450; 80053; 80305-QW; 80307; 81001; 82140; 83605; 83735; 84145; 84484; 85025; 85610; 85730; 86140; 87086; 93005; 93010; 96360; 99284; 99285-25; A9270-GY; J3490; J7030

== ENCOUNTER 2023-05-17 04:20 | Emergency (ER) | payer MEDICARE, MEDICAID ==
[2023-05-17] MEDS ORDERED: Sodium Chloride 0.9% 1,000 ML IV ONE (04:33)
[2023-05-17 04:53] LABS: BASOPHILS PERCENT AUTO 0.3 % (0.0-1.0); HEMATOCRIT 45.8 % (40.0-54.0); LYMPHOCYTES PERCENT AUTO 14.9 % (20.5-50.1); MEAN CORPUSCULAR HEMOGLOBIN 32.6 pg (27.0-34.0); MEAN CORPUSCULAR HGB CONC 32.8 g/dL (33.0-35.0); MEAN CORPUSCULAR VOLUME 99.6 fL (80-100); MONOCYTES PERCENT AUTO 11.8 % (2-8); PLATELET COUNT,PLT 286 10^3/uL (150-450); WHITE BLOOD CELL COUNT,WBC 14.7 10^3/uL (5.0-10.0)
[2023-05-17 05:12] LABS: LACTIC ACID 1.7 mmol/L (0.4-2.0)
[2023-05-17 05:17] LABS: A/G RATIO 1.2; ALANINE AMINOTRANSFERASE,ALT 30 U/L (16-63); ALBUMIN 3.7 g/dL (3.4-5.0); ALKALINE PHOSPHATASE 80 U/L (46-116); ANION GAP 16.6 mEq/L (7-13); ASPARTATE AMNIOTRANSFERASE,AST 40 U/L (15-37); BILIRUBIN TOTAL 0.5 mg/dL (0.2-1.0); BLOOD UREA NITROGEN,BUN 31 mg/dL (7-18); BUN/CREATININE RATIO 31.3 (No establ ref range); CALCIUM 9.3 mg/dL (8.5-10.1); CARBON DIOXIDE,CO2 27 mmol/L (21-32); CHLORIDE,CL 110 mmol/L (98-107); CREATINE KINASE,CK 712 U/L (39-308); CREATININE 0.99 mg/dL (0.70-1.30); GLUCOSE RANDOM 227 mg/dL (70-99); MAGNESIUM 1.7 mg/dL (1.8-2.4); POTASSIUM,K 3.6 mmol/L (3.5-5.1); PROTEIN TOTAL,TP 6.9 g/dL (6.4-8.2); SODIUM,NA 150 mmol/L (136-145); TSH ULTRASENSITIVE 1.12 uIU/mL (0.36-3.74)
[2023-05-17 05:20] LABS: C-REACTIVE PROTEIN < 0.50 ng/dL (<=0.50); ESTIMATED GFR 85 mL/min (>=60); ETHANOL BLOOD MEDICAL < 3 mg/dL (0)
[2023-05-17] MEDS ORDERED: Sodium Chloride 0.45% 1,000 ML IV SCH (05:45)
[2023-05-17] MEDS ORDERED: Donepezil 10 MG Tab PO ONE (06:03)
[2023-05-17] MEDS ORDERED: QUEtiapine 100 MG Tab PO ONE (06:03)
[2023-05-17 06:10] LABS: APPEARANCE,URINE CLEAR (CLEAR); BILIRUBIN,URINE NEGATIVE (NEGATIVE); COLOR,URINE YELLOW (YELLOW); GLUCOSE,URINE 100 (NEGATIVE); KETONES,URINE >=160 (NEGATIVE); LEUKOCYTE ESTERASE,URINE NEGATIVE (NEGATIVE); NITRITE,URINE POSITIVE (NEGATIVE); OCCULT BLOOD,URINE TRACE-INTACT (NEGATIVE); PROTEIN,URINE 100 (NEGATIVE)
[2023-05-17 06:18] LABS: AMORPHOUS SEDIMENT,URINE MANY /HPF (NOT SEEN); BACTERIA,URINE MANY /HPF (0-FEW/HPF); EPITHELIAL CELLS,URINE RARE /HPF (NOT SEEN); MUCUS,URINE MODERATE /LPF (NOT SEEN); WBC,URINE 20-30 /HPF (0-5/HPF)
[2023-05-17 06:19] LABS: AMPHETAMINES,URINE NEGATIVE (NEGATIVE); BARBITURATES,URINE NEGATIVE (NEGATIVE); BENZODIAZEPINE,URINE NEGATIVE (NEGATIVE); MDMA (ECSTASY), URINE NEGATIVE (NEGATIVE); METHADONE,URINE NEGATIVE (NEGATIVE); METHAMPHETAMINES,URINE NEGATIVE (NEGATIVE); OPIATES,URINE NEGATIVE (NEGATIVE); OXYCODONE,URINE NEGATIVE (NEGATIVE); PHENCYCLIDINE,URINE NEGATIVE (NEGATIVE); TCA,URINE NEGATIVE (NEGATIVE)
[2023-05-17] MEDS ORDERED: cefTRIAXone 2 GM Vial IVPUSH ONE (06:45)
[2023-05-17] MEDS ORDERED: diphenhydrAMINE 50 MG/ML SDV IVPUSH ONE (10:16)
[2023-05-17] MEDS ORDERED: LORazepam 2 MG/ML SDV IVPUSH ONE (10:17)
[2023-05-17 10:30] LABS: ANION GAP 15.2 mEq/L (7-13); BLOOD UREA NITROGEN,BUN 27 mg/dL (7-18); CALCIUM 8.7 mg/dL (8.5-10.1); CARBON DIOXIDE,CO2 24 mmol/L (21-32); CHLORIDE,CL 111 mmol/L (98-107); CREATININE 0.82 mg/dL (0.70-1.30); ESTIMATED GFR 97 mL/min (>=60); GLUCOSE RANDOM 285 mg/dL (70-99); POTASSIUM,K 3.2 mmol/L (3.5-5.1); SODIUM,NA 147 mmol/L (136-145)
[2023-05-17] MEDS ORDERED: Potassium Chloride 10 MEQ Tab.ER PO ONE ×3 (10:36→13:44)
[2023-05-17] MEDS ORDERED: OLANZapine 10 MG Vial IM ONE (13:42)
== END 2023-05-17 14:19 ==
LOC: DL.ED 04:20
DX: F20.9 Schizophrenia, unspecified (principal); I10 Essential (primary) hypertension; K21.9 Gastro-esophageal reflux disease without esophagitis; E11.9 Type 2 diabetes mellitus without complications; Z79.899 Other long term (current) drug therapy
CPT/HCPCS: 36415; 80048; 80053; 80305-QW; 80307; 81001; 82550; 83605; 83735; 84443; 85025; 86140; 87086; 87088; 87186; 96361; 96372; 96374; 96375; 99284; 99285-25; A9270-GY; J0696; J1200; J2060; J2405; J7030

== ENCOUNTER 2023-10-29 11:34 | Emergency (ER) | payer MEDICARE, MEDICAID | END 2023-10-29 11:58 | disposition left against medical advice (07) | LOC: DL.ED 11:34 | DX: Z53.21 Procedure and treatment not carried out due to patient leaving prior to being seen by health care provider (principal) ==

== ENCOUNTER 2023-10-29 16:48 | Emergency (ER) | payer MEDICARE, MEDICAID | END 2023-10-29 16:53 | disposition left against medical advice (07) | LOC: DL.ED 16:48 | DX: Z53.21 Procedure and treatment not carried out due to patient leaving prior to being seen by health care provider (principal) ==

== ENCOUNTER 2023-12-30 13:35 | Emergency (ER) | payer MEDICARE, MEDICAID ==
[2023-12-30 15:11] LABS: BASOPHILS PERCENT AUTO 0.5 % (0.0-1.0); EOSINOPHILS PERCENT AUTO 0.8 % (1.0-3.0); HEMATOCRIT 44.3 % (40.0-54.0); HEMOGLOBIN 15.2 g/dL (14.0-18.0); LYMPHOCYTES PERCENT AUTO 20.4 % (20.5-50.1); MEAN CORPUSCULAR HEMOGLOBIN 31.6 pg (27.0-34.0); MEAN CORPUSCULAR HGB CONC 34.3 g/dL (33.0-35.0); MEAN CORPUSCULAR VOLUME 92.1 fL (80-100); MONOCYTES PERCENT AUTO 12.1 % (2-8); NEUTROPHILS PERCENT AUTO 66.2 % (42.2-75.2); PLATELET COUNT,PLT 432 10^3/uL (150-450); RED BLOOD CELL COUNT 4.81 10^6/uL (4.6-6.2); WHITE BLOOD CELL COUNT,WBC 11.7 10^3/uL (5.0-10.0)
[2023-12-30 15:41] LABS: A/G RATIO 1.4; ALANINE AMINOTRANSFERASE,ALT 20 U/L (16-63); ALBUMIN 4.5 g/dL (3.4-5.0); ALKALINE PHOSPHATASE 98 U/L (46-116); ANION GAP 15.7 mEq/L (7-13); ASPARTATE AMNIOTRANSFERASE,AST 16 U/L (15-37); BILIRUBIN TOTAL 0.2 mg/dL (0.2-1.0); BLOOD UREA NITROGEN,BUN 11 mg/dL (7-18); BUN/CREATININE RATIO 11.6 (No establ ref range); CALCIUM 10.2 mg/dL (8.5-10.1); CARBON DIOXIDE,CO2 27 mmol/L (21-32); CHLORIDE,CL 97 mmol/L (98-107); CREATININE 0.95 mg/dL (0.70-1.30); EST CRCL DRUG DOSING (CG) 70.63 mL/min; GLUCOSE RANDOM 179 mg/dL (70-99); MAGNESIUM 1.8 mg/dL (1.8-2.4); POTASSIUM,K 4.7 mmol/L (3.5-5.1); PROTEIN TOTAL,TP 7.7 g/dL (6.4-8.2); SODIUM,NA 135 mmol/L (136-145); TSH ULTRASENSITIVE 1.75 uIU/mL (0.36-3.74)
[2023-12-30 15:45] LABS: ACETAMINOPHEN 0 ug/mL (10-30 (Therapeutic)); ESTIMATED GFR 89 mL/min (>=60); ETHANOL BLOOD MEDICAL < 3 mg/dL (0)
[2023-12-30] MEDS: LORazepam 2 MG/ML SDV IM ONE (17:14)
[2023-12-30] MEDS: diphenhydrAMINE 50 MG/ML SDV IM ONE (17:14)
[2023-12-30] MEDS: Haloperidol Lactate 5 MG/ML SDV IM ONE (17:15)
== END 2023-12-30 18:00 ==
LOC: DL.ED 13:35
DX: F25.0 Schizoaffective disorder, bipolar type (principal); I10 Essential (primary) hypertension; K21.9 Gastro-esophageal reflux disease without esophagitis; E11.9 Type 2 diabetes mellitus without complications; Z79.4 Long term (current) use of insulin; Z79.899 Other long term (current) drug therapy
CPT/HCPCS: 36415; 80053; 80143; 80179; 80307; 82947; 83735; 84443; 85025; 96372; 99284; 99285; J1200; J1630; J2060

== ENCOUNTER 2024-11-03 14:25 | Emergency (ER) | payer MEDICARE, MEDICAID ==
[2024-11-03 14:55] LABS: HEMATOCRIT 43.2 % (40.0-54.0); HEMOGLOBIN 14.6 g/dL (14.0-18.0); MEAN CORPUSCULAR HEMOGLOBIN 32.1 pg (27.0-34.0); MEAN CORPUSCULAR HGB CONC 33.8 g/dL (33.0-35.0); MEAN CORPUSCULAR VOLUME 94.9 fL (80-100); PLATELET COUNT,PLT 264 10^3/uL (150-450); RED BLOOD CELL COUNT 4.55 10^6/uL (4.6-6.2); WHITE BLOOD CELL COUNT,WBC 8.5 10^3/uL (5.0-10.0)
[2024-11-03] MEDS: Lactated Ringers 1,000 ML IV SCH (14:57)
[2024-11-03 14:58] LABS: BASOPHILS PERCENT AUTO 0.6 % (0.0-1.0); EOSINOPHILS PERCENT AUTO 1.2 % (1.0-3.0); LYMPHOCYTES PERCENT AUTO 24.6 % (20.5-50.1); MONOCYTES PERCENT AUTO 9.3 % (2-8); NEUTROPHILS PERCENT AUTO 64.3 % (42.2-75.2)
[2024-11-03 15:14] LABS: ACETAMINOPHEN 0 ug/mL (10-30 (Therapeutic)); ALANINE AMINOTRANSFERASE,ALT 10 U/L (16-63); ALBUMIN 3.4 g/dL (3.4-5.0); ALKALINE PHOSPHATASE 78 U/L (46-116); ANION GAP 14.1 mEq/L (7-13); ASPARTATE AMNIOTRANSFERASE,AST 12 U/L (15-37); BILIRUBIN TOTAL 0.5 mg/dL (0.2-1.0); BLOOD UREA NITROGEN,BUN 15 mg/dL (7-18); BUN/CREATININE RATIO 17.4 (No establ ref range); CALCIUM 9.7 mg/dL (8.5-10.1); CARBON DIOXIDE,CO2 25 mmol/L (21-32); CHLORIDE,CL 102 mmol/L (98-107); CREATININE 0.86 mg/dL (0.70-1.30); ESTIMATED GFR 96 mL/min (>=60); ETHANOL BLOOD MEDICAL < 3 mg/dL (0); GLUCOSE RANDOM 142 mg/dL (70-99); MAGNESIUM 1.5 mg/dL (1.8-2.4); POTASSIUM,K 4.1 mmol/L (3.5-5.1); PROTEIN TOTAL,TP 6.8 g/dL (6.4-8.2); SODIUM,NA 137 mmol/L (136-145)
[2024-11-03 15:23] LABS: EOSINOPHILS PERCENT MAN 1 % (1-3); LYMPHOCYTES PERCENT MAN 30 % (20-50); MONOCYTES PERCENT MAN 8 % (2-8); SEG NEUTROPHILS PERCENT MAN 61 % (42-75)
[2024-11-03 16:03] LABS: APPEARANCE,URINE CLOUDY (CLEAR); BILIRUBIN,URINE NEGATIVE (NEGATIVE); COLOR,URINE DARK YELLOW (YELLOW); GLUCOSE,URINE 500 (NEGATIVE); KETONES,URINE 80 (NEGATIVE); LEUKOCYTE ESTERASE,URINE NEGATIVE (NEGATIVE); NITRITE,URINE POSITIVE (NEGATIVE); OCCULT BLOOD,URINE LARGE (NEGATIVE); PROTEIN,URINE 30 (NEGATIVE)
[2024-11-03 16:10] LABS: EPITHELIAL CELLS,URINE RARE /HPF (NOT SEEN); RBC,URINE 40-50 /HPF (0-5)
[2024-11-03 16:11] LABS: AMORPHOUS SEDIMENT,URINE MODERATE /HPF (NOT SEEN); AMPHETAMINES,URINE NEGATIVE (NEGATIVE); BACTERIA,URINE MANY /HPF (0-FEW/HPF); BARBITURATES,URINE NEGATIVE (NEGATIVE); BENZODIAZEPINE,URINE NEGATIVE (NEGATIVE); MDMA (ECSTASY), URINE NEGATIVE (NEGATIVE); METHADONE,URINE NEGATIVE (NEGATIVE); METHAMPHETAMINES,URINE NEGATIVE (NEGATIVE); MUCUS,URINE FEW /LPF (NOT SEEN); OPIATES,URINE NEGATIVE (NEGATIVE); OXYCODONE,URINE NEGATIVE (NEGATIVE); PHENCYCLIDINE,URINE NEGATIVE (NEGATIVE); TCA,URINE NEGATIVE (NEGATIVE)
[2024-11-03] MEDS: Magnesium Sulfate 2 GM/50 mL 2 GM in Premix Bag 1 BAG IV ONE (16:15)
[2024-11-03] MEDS: cefTRIAXone 1 GM Vial IVPUSH ONE (17:05)
[2024-11-04] MEDS: metFORMIN 500 MG Tab PO ONE (00:48)
[2024-11-04] MEDS: FLUoxetine 10 MG Cap PO ONE (00:49)
[2024-11-04] MEDS: Levothyroxine 88 MCG Tab PO SCH (06:07)
[2024-11-04] MEDS ORDERED: glipiZIDE 5 MG Tab.ER PO SCH (08:00)
[2024-11-04] MEDS: glipiZIDE 5 MG Tab.ER PO SCH (10:31)
[2024-11-04] MEDS: Sulfamethoxazole/Trimethoprim 800-160 MG Tab PO SCH (10:31)
[2024-11-04] MEDS: Lisinopril 5 MG Tab PO SCH (10:31)
[2024-11-04] MEDS ORDERED: QUEtiapine 100 MG Tab PO SCH (18:30)
== END 2024-11-04 10:45 ==
LOC: DL.ED 14:25
DX: F32.A Depression, unspecified (principal); N30.00 Acute cystitis without hematuria; I10 Essential (primary) hypertension; E11.9 Type 2 diabetes mellitus without complications; Z79.899 Other long term (current) drug therapy; Z79.890 Hormone replacement therapy; Z79.84 Long term (current) use of oral hypoglycemic drugs
CPT/HCPCS: 36415; 70450; 80053; 80143; 80179; 80305; 80307; 81001; 82140; 83735; 84443; 85025; 87086; 96361; 96365; 96375; 99285; A9270; J0696; J3475; J7120

== ENCOUNTER 2025-01-15 12:54 | Emergency (ER) | payer MEDICARE, MEDICAID ==
[2025-01-15] MEDS: Ketamine 500 mg/10 ML MDV IM ONE (12:56)
[2025-01-15 13:10] LABS: BASOPHILS PERCENT AUTO 0.6 % (0.0-1.0); EOSINOPHILS PERCENT AUTO 0.9 % (1.0-3.0); LYMPHOCYTES PERCENT AUTO 21.0 % (20.5-50.1); MONOCYTES PERCENT AUTO 11.9 % (2-8); NEUTROPHILS PERCENT AUTO 65.6 % (42.2-75.2); PLATELET COUNT,PLT 520 10^3/uL (150-450); RED BLOOD CELL COUNT 4.77 10^6/uL (4.6-6.2); WHITE BLOOD CELL COUNT,WBC 16.1 10^3/uL (5.0-10.0)
[2025-01-15 13:26] LABS: APPEARANCE,URINE CLEAR (CLEAR); GLUCOSE,URINE 500 (NEGATIVE); OCCULT BLOOD,URINE NEGATIVE (NEGATIVE)
[2025-01-15 13:28] LABS: A/G RATIO 1.1; ALANINE AMINOTRANSFERASE,ALT 14 U/L (16-63); ASPARTATE AMNIOTRANSFERASE,AST 11 U/L (15-37); BILIRUBIN TOTAL 0.4 mg/dL (0.2-1.0); BLOOD UREA NITROGEN,BUN 14 mg/dL (7-18); CARBON DIOXIDE,CO2 21 mmol/L (21-32); CHLORIDE,CL 102 mmol/L (98-107); CREATININE 1.12 mg/dL (0.70-1.30); GLUCOSE RANDOM 250 mg/dL (70-99); POTASSIUM,K 3.9 mmol/L (3.5-5.1); PROTEIN TOTAL,TP 7.7 g/dL (6.4-8.2); SODIUM,NA 138 mmol/L (136-145)
[2025-01-15 13:29] LABS: ESTIMATED GFR 72 mL/min (>=60)
[2025-01-15 13:32] LABS: AMPHETAMINES,URINE NEGATIVE (NEGATIVE); BARBITURATES,URINE NEGATIVE (NEGATIVE); MDMA (ECSTASY), URINE NEGATIVE (NEGATIVE); METHAMPHETAMINES,URINE NEGATIVE (NEGATIVE); OPIATES,URINE NEGATIVE (NEGATIVE); OXYCODONE,URINE NEGATIVE (NEGATIVE); PHENCYCLIDINE,URINE NEGATIVE (NEGATIVE); TCA,URINE NEGATIVE (NEGATIVE)
[2025-01-15 13:41] LABS: EPITHELIAL CELLS,URINE RARE /HPF (NOT SEEN)
[2025-01-15] MEDS: Ketamine 500 mg/10 ML MDV ONE (13:59)
== END 2025-01-15 15:20 ==
LOC: DL.ED 12:54
DX: F31.2 Bipolar disorder, current episode manic severe with psychotic features (principal); I10 Essential (primary) hypertension; K21.9 Gastro-esophageal reflux disease without esophagitis; E11.9 Type 2 diabetes mellitus without complications; Z79.890 Hormone replacement therapy; Z79.84 Long term (current) use of oral hypoglycemic drugs; Z79.899 Other long term (current) drug therapy
CPT/HCPCS: 36415; 80053; 80143; 80179; 80305; 81001; 83735; 85025; 96372; 96374; 96375; 99285; C1758; J1630; J3360; J3490